=== PATIENT | female | born 1985 | race African-American/Black ===

== ENCOUNTER 2016-08-26 20:12 | Emergency (ER) | payer MEDICAID ==
[~2016-08-26] VITALS: Ht 170.2 cm; Wt 51.3 kg
[~2016-08-26 20:12] MED LIST: BENADRYL25 MG ORAL; CIPROFLOXACIN500 M2 ORAL; IBUPROFEN600 M1 PO; KEFLEX500 MG ORAL; METROGEL-VAGINA70 G1 VAGIN; METROGEL-VAGINA70 G1 VG; NAPROXEN500 M2 ORAL; NKM; NORCO 5-325 TA1 EACH ORAL; PENICILLIN V P500 MG PO; SILVADENE CREAM50 GM TOP; TRAMADOL HCL50 MG ORAL; TYLENOL EXTRA500 MG ORAL; ULTRAM50 MG ORAL
[2016-08-26 20:42] VITALS: BP 124/77
[2016-08-26] MEDS ORDERED: Norco 5mg/325mg tab ORAL ONE (21:15)
[2016-08-26 21:18] LABS: APPEARANCE,URINE CLEAR; KETONES,URINE NEGATIVE (NEGATIVE); LEUKOCYTE ESTERASE ,URINE 1+ (NEGATIVE); NITRITE,URINE NEGATIVE (NEGATIVE); PH,URINE 7 (4.5-8.0); PROTEIN,URINE NEGATIVE (NEGATIVE); UROBILINOGEN,URINE 1 MG/DL (0.0-1.0)
[2016-08-26 21:28] LABS: BACTERIA,URINE FEW /HPF; SQUAMOUS EPITHELIAL CELL,UR MODERATE /LPF (NONE/OCC); WBC,URINE 0-2 /HPF (0 - 2)
--- NOTE | 2016-08-26 21:30 | Emergency Room Report ---
History of Present Illness General Chief Complaint: Abdominal Pain Source: Patient Present Illness HPI Is a 30-year-old female with a history of right ovarian cyst. Last time he was 4 cm. She was been treated conservatively with control pill. She did not continue control because they gave her headache and nausea. She present with right lower quadrant pain this started yesterday. Sharp in nature. Worse with movement and palpation. No anorexia. No fever. No chills. Similar to previous pain. No other complaint. Allergies: Coded Allergies: IBUPROFEN (Verified Allergy, Mild, vomiting, 05/07/13) Patient History Past Medical History: see triage record, old chart reviewed Past Surgical History: other Pertinent Family History: none Social History: Denies: smoking Last Menstrual Period: 08/14/16 Now: No Immunizations: other Reviewed Nursing Documentation: PMH: Agreed, PSxH: Agreed Nursing Documentation-PMH Hx Cardiac Problems: No Hx Gastrointestinal Problems: Yes - OVARIAN CYST Hx Neurological Problems: No Review of Systems Eye: Denies: blurred vision, eye pain ENT: Denies: ear pain, nose congestion, throat swelling Respiratory: Denies: cough, shortness of breath Cardiovascular: Denies: chest pain, palpitations Gastrointestinal: Reports: abdominal pain, Denies: diarrhea, nausea, vomiting Musculoskeletal: Denies: back pain, joint pain Skin: Denies: rash Neurological: Denies: headache, numbness Endocrine: Denies: increased thirst, increased urine Hematologic/Lymphatic: Denies: easy bruising All Other Systems: negative except mentioned in HPI Physical Exam Vital Signs Date Time Temp Pulse Resp B/P Pulse Ox O2 Delivery O2 Flow Rate FiO2 08/26/16 20:32 98.4 83 15 124/77 99 Room Air vitals normal Sp02 EP Interpretation: reviewed, normal General Appearance: well appearing, no apparent distress, alert Head: normocephalic, atraumatic Eyes: bilateral eye EOMI, bilateral eye PERRL ENT: hearing grossly normal, normal pharynx Neck: full range of motion, supple, no meningismus Respiratory: chest non-tender, lungs clear, normal breath sounds Cardiovascular #1: regular rate, rhythm, no murmur Gastrointestinal: normal bowel sounds, no mass, no organomegaly, no bruit, non- distended, tenderness - Right lower quadrant Musculoskeletal: back normal, gait/station normal, normal range of motion Psychiatric: mood/affect normal Skin: warm/dry Medical Decision Making Diagnostic Impression: Primary Impression: Ovarian cyst Qualified Codes: N83.201 - Unspecified ovarian cyst, right side ER Course Patient presents with right lower quadrant pain. No evidence of infection. No evidence of appendicitis or acute abdomen. She does have a history of ovarian cysts which is smaller. No evidence of any torsion. She looks comfortable. We 'll discharge home. Her allergies to ibuprofen is out of, stomach upset and she vomits. No true allergy. CT/MRI/US Diagnostic Results CT/MRI/US Diagnostic Results : Imaging Test Ordered: CT abdomen and pelvis Impression read by radiologist. Ovarian cyst smaller. No appendicitis. Last Vital Signs Date Time Temp Pulse Resp B/P Pulse Ox O2 Delivery O2 Flow Rate FiO2 08/26/16 20:32 98.4 83 15 124/77 99 Room Air Status: improved Disposition: HOME, SELF-CARE Condition: Stable Scripts Hydrocodone Bit/Acetaminophen 5-325* (NORCO 5-325*) 1 Each Tablet 1 TAB ORAL Q6H Y for For Pain, #10 TAB 0 Refills Prov: CHAS ROYAL M.D. 08/26/16 Additional Instructions: Followup with your DrColby in 7 days. Return if symptom worsen. CHAS ROYAL M.D. Aug 26, 2016 21:30
[2016-08-26] MEDS ORDERED: NORCO 5-325 TA1 EACH ORAL (22:21)
[2016-08-26 23:08] VITALS: BP 117/69
--- NOTE | 2016-08-28 09:12 | Diagnostic Imaging Report ---
Indication: Abdominal pain and pelvic pain Technique: Spiral acquisitions obtained through the abdomen and pelvis. No oral contrast utilized, per emergency room physician request No IV contrast utilized, per referring physician request.. Multiplanar reconstructions were generated. Total dose length product 517 mGycm. CTDIvol(s) mGy Comparison: June 02, 2014 Findings: Lack of enteric contrast limits assessment of the GI tract. The appendix is normal. Is no evidence of diverticulosis or diverticulitis. There is trace free pelvic fluid. No small bowel distention. No free intraperitoneal air. The esophagus, stomach, duodenum are unremarkable. Lack of IV contrast limits assessment of solid organs. The liver is unremarkable. The gallbladder is nondistended. The pancreas, spleen, adrenals, kidneys are unremarkable. No mesenteric or retroperitoneal mass or adenopathy. No pelvic mass or adenopathy. Previously demonstrated right adnexal cyst is no longer present. The included lung bases are clear. The bones are unremarkable. Impression: Essentially unremarkable exam. Trace free pelvic fluid, most likely physiologic Since June 02, 2014, interim resolution of previously demonstrated adnexal cyst This agrees with the preliminary interpretation provided overnight by Dr. Salgado The CT scanner at [facility] is accredited by the [employer] and the scans are performed using protocols designed to limit radiation exposure to as low as reasonably achievable to attain images of sufficient resolution adequate for diagnostic evaluation.
== END 2016-08-26 23:10 | disposition home or self-care (01) ==
LOC: EMR 21:43
DX: N83.201 Unspecified ovarian cyst, right side (principal); Z88.6 Allergy status to analgesic agent
CPT/HCPCS: 74176; 81003; 81025; 99284

== ENCOUNTER 2016-09-13 20:37 | Emergency (ER) | payer MEDICAID, OTHER ==
[~2016-09-13] VITALS: Ht 170.2 cm; Wt 53.5 kg
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
[2016-09-13 21:00] VITALS: BP 130/75
[2016-09-13] MEDS ORDERED: Naproxen 500mg tab ORAL ONE (21:00)
[2016-09-13] MEDS ORDERED: NAPROXEN375 MG ORAL (21:03)
[2016-09-13] MEDS ORDERED: NORCO 5-325 TA1 EACH ORAL (21:03)
[2016-09-14] MEDS ORDERED: PERCOCET 5-3251 EACH ORAL (23:28)
== END 2016-09-13 21:30 | disposition home or self-care (01) ==
LOC: EMR 21:00
DX: S09.90XA Unspecified injury of head, initial encounter (principal); Z88.6 Allergy status to analgesic agent; Y00.XXXA Assault by blunt object, initial encounter; Y92.512 Supermarket, store or market as the place of occurrence of the external cause; Y99.0 Civilian activity done for income or pay
CPT/HCPCS: 99284

== ENCOUNTER 2016-09-14 21:22 | Emergency (ER) | payer OTHER ==
[~2016-09-14] VITALS: Ht 170.2 cm; Wt 51.3 kg
[~2016-09-14 21:22] MED LIST changes: +NAPROXEN375 MG ORAL
[2016-09-14 21:30] VITALS: BP 124/78
[2016-09-14] MEDS ORDERED: Oxycodone/Acetaminophen 5-325 ORAL ONE (21:45)
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
[2016-09-14] MEDS ORDERED: PERCOCET 5-3251 EACH ORAL (23:28)
[2016-09-15] VITALS: BP 122/71
[2016-09-15 00:06] VITALS: BP 124/78
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
== END 2016-09-15 | disposition home or self-care (01) ==
LOC: EMR 21:59
DX: G44.319 Acute post-traumatic headache, not intractable (principal); Z88.6 Allergy status to analgesic agent
CPT/HCPCS: 70450; 99284

== ENCOUNTER 2017-02-19 23:03 | Emergency (ER) | payer OTHER ==
[~2017-02-19] VITALS: Ht 170.2 cm; Wt 63.5 kg
[~2017-02-19 23:03] MED LIST changes: +PERCOCET 5-3251 EACH ORAL
[2017-02-19 23:45] VITALS: BP 122/76
[2017-02-19] MEDS ORDERED: Ketorolac 30mg Inj IV ONE (23:45)
--- NOTE | 2017-02-19 23:46 | Emergency Room Report ---
History of Present Illness General Chief Complaint: Abdominal Pain Source: Patient Present Illness HPI Is a 31-year-old female with history of brain cyst. She complaining of right lower caught her abdominal pain onset for 2 days. Similar to previous ovarian cyst. She said it measured 4-5 cm before. Pain is sharp in nature. 01/08. No nausea or vomiting or diarrhea. No fever. No urinary complaint. Allergies: Coded Allergies: IBUPROFEN (Verified Allergy, Mild, vomiting, 05/07/13) Patient History Past Medical History: see triage record, old chart reviewed Past Surgical History: other Pertinent Family History: none Social History: Denies: smoking Last Menstrual Period: last month Now: No Immunizations: other Reviewed Nursing Documentation: PMH: Agreed, PSxH: Agreed Nursing Documentation-PMH Hx Cardiac Problems: No Hx Gastrointestinal Problems: Yes - OVARIAN CYST Hx Neurological Problems: No Review of Systems Eye: Denies: eye pain, blurred vision ENT: Denies: ear pain, nose congestion, throat swelling Respiratory: Denies: cough, shortness of breath Cardiovascular: Denies: chest pain, palpitations Gastrointestinal: Reports: abdominal pain, Denies: diarrhea, nausea, vomiting Musculoskeletal: Denies: back pain, joint pain Skin: Denies: rash Neurological: Denies: headache, numbness Endocrine: Denies: increased thirst, increased urine Hematologic/Lymphatic: Denies: easy bruising All Other Systems: negative except mentioned in HPI Physical Exam Vital Signs Date Time Temp Pulse Resp B/P (MAP) Pulse Ox O2 Delivery O2 Flow Rate FiO2 02/19/17 23:14 98.4 82 16 120/85 99 Room Air vitals normal Sp02 EP Interpretation: reviewed, normal General Appearance: well appearing, no apparent distress, alert Head: normocephalic, atraumatic Eyes: bilateral eye PERRL, bilateral eye EOMI ENT: hearing grossly normal, normal pharynx Neck: full range of motion, supple, no meningismus Respiratory: chest non-tender, lungs clear, normal breath sounds Cardiovascular #1: regular rate, rhythm, no murmur Gastrointestinal: normal bowel sounds, no mass, no organomegaly, no bruit, non- distended, tenderness - Right lower quadrant/right pelvic tenderness Musculoskeletal: back normal, gait/station normal, normal range of motion Neurologic: alert, oriented x3 Psychiatric: mood/affect normal Skin: warm/dry Medical Decision Making Diagnostic Impression: Primary Impression: Abdominal pain of unknown etiology Additional Impression: Pelvic pain ER Course She present with abdominal pain/pelvic pain. She looks comfortable. No evidence of cysts on the ultrasound. No evidence of torsion. No evidence of urinary tract infection. We'll discharge home. Lab Results Impression labs normal CT/MRI/US Diagnostic Results CT/MRI/US Diagnostic Results : Imaging Test Ordered: Pelvic ultrasound Impression negative per radiologist. no cyst Last Vital Signs Date Time Temp Pulse Resp B/P (MAP) Pulse Ox O2 Delivery O2 Flow Rate FiO2 02/19/17 23:21 98.4 82 16 120/85 99 Room Air Status: improved Disposition: HOME, SELF-CARE Condition: Stable Scripts Tramadol Hcl* (ULTRAM*) 50 Mg Tablet 50 MG ORAL Q6H Y for For Pain, #10 TAB 0 Refills Prov: CHAS ROYAL M.D. 02/20/17 Referrals: [facility],REFERRING (PCP) Patient Instructions: Abdominal Pain, Adult Additional Instructions: Followup with your DrColby in 7 days. Return if symptom worsen. CHAS ROYAL M.D. Feb 19, 2017 23:46
[2017-02-19 23:59] LABS: APPEARANCE,URINE CLEAR; KETONES,URINE NEGATIVE (NEGATIVE); LEUKOCYTE ESTERASE ,URINE NEGATIVE (NEGATIVE); NITRITE,URINE NEGATIVE (NEGATIVE); PH,URINE 5 (4.5-8.0); PROTEIN,URINE NEGATIVE (NEGATIVE); UROBILINOGEN,URINE NORMAL MG/DL (0.0-1.0)
[2017-02-20 00:06] LABS: BASOPHILS % (AUTO) 1.2 % (0.0-2.0); EOSINOPHILS % (AUTO) 4.5 % (0.0-3.0); LYMPHOCYTES % (AUTO) 40.8 % (20.0-45.0); MEAN CORPUSCULAR HEMOGLOBIN 30.7 PG (27.0-31.0); MEAN CORPUSCULAR HGB CONC 33.6 G/DL (32.0-36.0); MEAN CORPUSCULAR VOLUME 91 FL (80-99); MEAN PLATELET VOLUME 9.1 FL (6.5-10.1); MONOCYTES % (AUTO) 5.3 % (1.0-10.0); NEUTROPHILS % (AUTO) 48.2 % (45.0-75.0); PLATELET COUNT 186 K/UL (150-450); RED BLOOD COUNT 4.28 M/UL (4.20-5.40); RED CELL DISTRIBUTION WIDTH 11.2 % (11.6-14.8); WHITE BLOOD COUNT 7.4 K/UL (4.8-10.8)
[2017-02-20 00:23] LABS: ANION GAP 10 (5-15); CALCIUM 9.4 mg/dL (8.6-10.2); CARBON DIOXIDE 29 mEQ/L (20-30); CHLORIDE 100 mEQ/L (98-107); CREATININE 1.2 mg/dL (0.5-0.9); GLOMERULAR FILTRATION RATE > 60 mL/min (>60); HEMOLYSIS 6; POTASSIUM 3.8 mEQ/L (3.4-4.9); SODIUM 139 mEQ/L (135-145)
[2017-02-20 01:00] VITALS: BP 118/72
[2017-02-20] MEDS ORDERED: TRAMADOL HCL50 MG ORAL (01:45)
[2017-02-20 01:50] VITALS: BP 128/74
[2017-02-20 02:00] VITALS: BP 128/74
== END 2017-02-20 02:00 | disposition home or self-care (01) ==
LOC: EMR 23:40
DX: R10.9 Unspecified abdominal pain (principal); R10.2 Pelvic and perineal pain; Z88.6 Allergy status to analgesic agent
CPT/HCPCS: 36415; 76830; 76856; 80048; 81003; 81025; 85025; 96374; 99284; J1885

== ENCOUNTER 2017-07-29 19:45 | Emergency (ER) | payer OTHER ==
[~2017-07-29] VITALS: Ht 170.2 cm; Wt 65.8 kg
[2017-07-29] MEDS ORDERED: Norco 5mg/325mg tab ORAL ONE (20:00)
--- NOTE | 2017-07-29 20:40 | Emergency Room Report ---
History of Present Illness General Chief Complaint: Lower Extremity Injury Source: Patient Present Illness HPI 31 YO Female presents to the ED c/o Right great toe pain that is localized and rated as 8/10 in severity x 1 week, stubbed toe in grocery store a week ago . pain exacerbated with weight bearing and walking. denies bruises, erythema, or open wounds. reports mild swelling. Denies numbness tingling or loss of sensation or gross motor movements of the extremities, incontinence of bowel or bladder. Denies CP, Palpitations, LOC, AMS, dizziness, Changes in Vision, Sensation, paresthesias, or a sudden severe headache. Allergies: Coded Allergies: IBUPROFEN (Verified Allergy, Mild, vomiting, 05/07/13) Patient History Past Medical History: see triage record Past Surgical History: none Pertinent Family History: none Last Menstrual Period: unknown Now: No : 1 Immunizations: UTD Reviewed Nursing Documentation: PMH: Agreed, PSxH: Agreed Nursing Documentation-PMH Hx Cardiac Problems: No Hx Neurological Problems: No Review of Systems All Other Systems: negative except mentioned in HPI Physical Exam Vital Signs Date Time Temp Pulse Resp B/P (MAP) Pulse Ox O2 Delivery O2 Flow Rate FiO2 07/29/17 20:05 98.7 79 18 120/77 99 Room Air 98.8 Sp02 EP Interpretation: reviewed, normal General Appearance: no apparent distress, alert, GCS 15, non-toxic Head: normocephalic, atraumatic ENT: hearing grossly normal, normal voice Neck: full range of motion Respiratory: lungs clear, normal breath sounds, speaking full sentences Cardiovascular #1: regular rate, rhythm, no edema, normal capillary refill Musculoskeletal: back normal, gait/station normal, normal range of motion, tender - TTP to the base of the Right Great toe, pain upon checking for laxity. no increased laxity, no bruises or appreciable swelling. Neurologic: alert, oriented x3, responsive, motor strength/tone normal, sensory intact, speech normal, grossly normal Psychiatric: judgement/insight normal Skin: normal color, no rash, warm/dry, well hydrated, other - no bruising or erythema, no open wounds Medical Decision Making PA Attestation Dr. snow is my supervising Physician whom patient management has been discussed with. Diagnostic Impression: Primary Impression: Sprain of toe, great, right Qualified Codes: S93.501A - Unspecified sprain of right great toe, initial encounter ER Course 31 YO Female presents to the ED c/o Right great toe pain that is localized and rated as 8/10 in severity x 1 week, stubbed toe in grocery store a week ago . pain exacerbated with weight bearing and walking. denies bruises, erythema, or open wounds. reports mild swelling. Denies numbness tingling or loss of sensation or gross motor movements of the extremities, incontinence of bowel or bladder. Denies CP, Palpitations, LOC, AMS, dizziness, Changes in Vision, Sensation, paresthesias, or a sudden severe headache. Ddx considered but are not limited to Fracture, dislocation, contusion, Sprain/ Strain/Spasm , gout, Septic joint just to name a few. Vital signs: are WNL, pt. is afebrile H&PE are most consistent with musculoskeletal injury will perform imaging to r/ o fractures/dislocations. ORDERS: - X-ray Right Foot 3 views - negative for fx, Dislocation, or significant soft tissue injury, per preliminary read in ED, and signed by MISHEL Brandon , my supervising physician has reviewed, and agrees with my interpretation. ED INTERVENTIONS: - Oral pain control. - Cast shoe applied by cleaning supervisor - -Patient is provided with crutches and instructed on their use DISCHARGE: At this time pt. is stable for d/c to home. Will provide printed patient care instructions, and any necessary prescriptions. Care plan and follow up instructions have been discussed with the patient prior to discharge. Other X-Ray Diagnostic Results Other X-Ray Diagnostic Results : X-Ray ordered: Right Foot # of Views/Limited Vs Complete: 3 View Indication: Pain EP Interpretation: Yes MISHEL Xray: Interpretation reviewed, by supervising MD, and agrees with findings. Interpretation: no dislocation, no soft tissue swelling, no fractures Impression: No acute disease Electronically Signed by: Yael Brandon PA-C Last Vital Signs Date Time Temp Pulse Resp B/P (MAP) Pulse Ox O2 Delivery O2 Flow Rate FiO2 07/29/17 20:27 98.7 07/29/17 20:05 79 18 120/77 99 Room Air Disposition: HOME, SELF-CARE Condition: Stable Scripts Naproxen* (NAPROXEN*) 500 Mg Tablet 500 MG ORAL TWICE A DAY, #20 TAB Prov: Yael Brandon 07/29/17 Patient Instructions: Foot Sprain Additional Instructions: Take medications as directed. Follow up with a Primary Care Provider in 3-5 days, even if your symptoms have resolved. --Please review list of primary care clinics, if you do not already have a primary care provider Return sooner to ED if new symptoms occur, or current symptoms become worse. - Please note that this Emergency Department Report was dictated using [employer][email or web address] equipment commanding officer technology software, occasionally this can lead to erroneous entry secondary to interpretation by the dictation equipment. Yael Brandon Jul 29, 2017 20:40
[2017-07-29] MEDS ORDERED: NAPROXEN500 M2 ORAL (20:41)
[2017-07-29 21:15] VITALS: BP 120/77
--- NOTE | 2017-07-30 09:45 | Diagnostic Imaging Report ---
Indication: Pain, first digit trauma Technique: 3 views right foot Comparison: none Findings: No acute fractures. No dislocations. The joint spaces are preserved. Bony alignment is normal. Impression: Negative
== END 2017-07-29 21:15 | disposition home or self-care (01) ==
LOC: EMR 20:43
DX: S93.501A Unspecified sprain of right great toe, initial encounter (principal); W22.8XXA Striking against or struck by other objects, initial encounter; Y92.512 Supermarket, store or market as the place of occurrence of the external cause; Z88.6 Allergy status to analgesic agent
CPT/HCPCS: 99283

== ENCOUNTER 2017-08-20 22:16 | Emergency (ER) | payer OTHER ==
[~2017-08-20] VITALS: Ht 170.2 cm; Wt 67.1 kg
[2017-08-20 22:20] VITALS: BP 129/78
--- NOTE | 2017-08-20 22:39 | Emergency Room Report ---
History of Present Illness General Chief Complaint: Abdominal Pain Source: Patient Present Illness HPI 31-year-old female presents with 2-3 days intermittent vaginal spotting Patient and partner noticed it 3 days ago after intercourse however but she denies that it was rougher intercourse than usual patient was "not feelin and went to the bathroom and noticed spotting on tissue paper tonight so came to ER No tracie vaginal hemorrhage Patient's LMP was 2 weeks ago Never had off cycle vaginal bleeding previously Patient denies associated dysuria, polyuria, fever chills, flank pain, vaginal discharge Patient TOOK [place] 30 minutes before coming refusing any pain medication right now Allergies: Coded Allergies: IBUPROFEN (Verified Allergy, Mild, vomiting, 08/20/17) Patient History Past Medical History: none Past Surgical History: none Pertinent Family History: none Social History: Denies: smoking, alcohol use, drug use Last Menstrual Period: 2 weeks ago Now: No Immunizations: UTD Reviewed Nursing Documentation: PMH: Agreed; PSxH: Agreed Nursing Documentation-PMH Past Medical History: No History, Except For Hx Cardiac Problems: No Hx Neurological Problems: No Review of Systems All Other Systems: negative except mentioned in HPI Physical Exam Vital Signs Date Time Temp Pulse Resp B/P (MAP) Pulse Ox O2 Delivery O2 Flow Rate FiO2 08/20/17 22:17 98.0 86 16 129/78 100 Room Air 98.1 Sp02 EP Interpretation: reviewed, normal General Appearance: normal inspection, well appearing, no apparent distress, alert, GCS 15, non-toxic Head: normocephalic, atraumatic Eyes: bilateral eye PERRL, bilateral eye EOMI ENT: normal ENT inspection, hearing grossly normal, normal pharynx, no angioedema, normal voice, TMs + canals normal, uvula midline, moist mucus membranes Neck: normal inspection, full range of motion, supple, thyroid normal, no meningismus, no bony tend Respiratory: normal inspection, lungs clear, normal breath sounds, no rhonchi, no respiratory distress, no retraction, no accessory muscle use, no wheezing, speaking full sentences Cardiovascular #1: regular rate, rhythm, no edema, no JVD, normal capillary refill Gastrointestinal: normal inspection, normal bowel sounds, soft, no mass, no peritonitis, non-distended, no guarding, no hernia, no pulsatile mass, other - Very minimal suprapubic tenderness to palpation Genitourinary: no CVA tenderness Musculoskeletal: normal inspection, back normal, normal range of motion, no calf tenderness, pelvis stable, Claudia's Sign negative Neurologic: normal inspection, alert, oriented x3, responsive, school counsellor III-XII nml as tested, motor strength/tone normal, cerebellar normal, normal gait, speech normal Psychiatric: normal inspection, judgement/insight normal, mood/affect normal, no suicidal/homicidal ideation, no delusions Skin: normal inspection, normal color, no rash Lymphatic: normal inspection, no adenopathy Medical Decision Making Diagnostic Impression: Primary Impression: Vaginal bleeding ER Course VSS, afebrile No tracie hemorrhage ?menorrhagia Unlikely ovarian cyst rupture given well appearance, stable vitals, and patient had this previously uaShows microscopic hematuria, no tracie UTI Reassured patient Advised she can take her naproxen she has at home for cramping and mild spotting but should follow up with legal advisor for further evaluation, treatment Last Vital Signs Date Time Temp Pulse Resp B/P (MAP) Pulse Ox O2 Delivery O2 Flow Rate FiO2 08/20/17 22:17 98.0 86 16 129/78 100 Room Air 98.1 Status: improved Disposition: HOME, SELF-CARE DUY FLORES M.D. Aug 20, 2017 22:39
[2017-08-20 22:51] LABS: APPEARANCE,URINE CLEAR; BILIRUBIN, URINE NEGATIVE (NEGATIVE); COLOR,URINE PALE YELLOW; GLUCOSE, URINE (UA) NEGATIVE (NEGATIVE); KETONES,URINE NEGATIVE (NEGATIVE); LEUKOCYTE ESTERASE ,URINE NEGATIVE (NEGATIVE); NITRITE,URINE NEGATIVE (NEGATIVE); PH,URINE 6 (4.5-8.0); PROTEIN,URINE NEGATIVE (NEGATIVE); UROBILINOGEN,URINE NORMAL MG/DL (0.0-1.0)
[2017-08-20 23:17] VITALS: BP 129/78
== END 2017-08-20 23:16 | disposition home or self-care (01) ==
LOC: EMR 22:35
DX: N93.9 Abnormal uterine and vaginal bleeding, unspecified (principal); R10.9 Unspecified abdominal pain; Z88.6 Allergy status to analgesic agent
CPT/HCPCS: 81003; 81025; 99282

== ENCOUNTER 2018-05-12 19:25 | Emergency (ER) | payer OTHER ==
[~2018-05-12] VITALS: Ht 170.2 cm; Wt 61.7 kg
[2018-05-12] MEDS ORDERED: LEXAPRO5 MG ORAL (19:35)
[2018-05-12 19:41] VITALS: BP 118/69
--- NOTE | 2018-05-12 19:59 | Emergency Room Report ---
History of Present Illness General Chief Complaint: Upper Extremity Injury Source: Patient Present Illness HPI 32-year-old female patient presents the ER complaining of right index finger infection for the past days. Patient reports pain and swelling on the radial border of her left fingernail. 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 Patient reports that it was more swollen before she applied ice to the affected area but is still swollen and painful.. Reports no pus has drained. Denies injury or trauma. Denies fever, chest pain , shortness of breath. Reports right hand dominant. Reports up-to-date on tetanus vaccination. Allergies: Coded Allergies: IBUPROFEN (Verified Allergy, Mild, vomiting, 08/20/17) Patient History Past Medical History: see triage record Last Menstrual Period: UNK Now: No - UNK : 1 Para: 1 Reviewed Nursing Documentation: PMH: Agreed; PSxH: Agreed Nursing Documentation-PMH Past Medical History: No History, Except For Hx Cardiac Problems: No Hx Neurological Problems: No Review of Systems All Other Systems: negative except mentioned in HPI Physical Exam Vital Signs Date Time Temp Pulse Resp B/P (MAP) Pulse Ox O2 Delivery O2 Flow Rate FiO2 05/12/18 19:32 98.2 73 16 120/77 100 Room Air Sp02 EP Interpretation: reviewed, normal General Appearance: well appearing, no apparent distress, alert, GCS 15, non- toxic Head: normocephalic, atraumatic Eyes: bilateral eye normal inspection, bilateral eye PERRL ENT: hearing grossly normal, normal pharynx, no angioedema, normal voice, uvula midline, moist mucus membranes Neck: full range of motion Respiratory: lungs clear, normal breath sounds, no rhonchi, no respiratory distress, no accessory muscle use, no wheezing, speaking full sentences Cardiovascular #1: regular rate, rhythm, no edema Cardiovascular #2: 2+ radial (R), 2+ radial (L) Musculoskeletal: back normal, digits/nails normal, gait/station normal, normal range of motion, non-tender, other - NVI, cap refill <2seconds Neurologic: alert, oriented x3, responsive, motor strength/tone normal, sensory intact Skin: other - Right hand index finger radial border: Obvious small paronychia, mild erythema and swelling, indurated, no felon, no nail avulsion Procedures Incision and Drainage Incision and Drainage : Consent: Verbal Site: Right index finger Blade Size: 11 I & D Procedure: betadine prep, sterile drapes applied, sterile dressing applied Wound Location: upper extremity - Right index finger Wound's Depth, Shape: superficial Wound Length (cm): 1 Wound Explored: contaminated Irrigated w/ Saline (ccs): 10 Anesthesia: other - LET Volume Anesthetic (ccs): 1 Splint Applied?: No Sling Applied?: No Patient Tolerated: Well Complications: None Medical Decision Making PA Attestation Dr. Bond is my supervising Physician whom patient management has been discussed with. Diagnostic Impression: Primary Impression: Paronychia of finger ER Course Pt. presents to the ED c/o abscess on finger. Ddx considered but are not limited to rash, cellulitis, abscess, felon, paronychia, hangnail, herpetic aby. Vital signs: are WNL, pt. is afebrile Ordered Bacitracin and Lidocaine ED COURSE: Topical LET is for local anesthesia. I&D performed of paronychia. Pus expressed from finger. See procedure note. Patient finger no longer swollen, patient reports decrease in pain symptoms. Sterile dressing and Bacitracin applied to wound following procedure. Patient instructed to keep wound clean and dry and to follow-up with primary care provider in 2 days for wound check. ER precautions given. DISCHARGE -Rx provided for Clindamycin to cover for MRSA. -Rx provided for Tylenol -Rx provided for Bacitracin At this time pt. is stable for d/c to home. Patient resting comfortably, in no acute distress, nontoxic appearing, laughing and smiling. Will provide printed patient care instructions and any necessary prescriptions. Care plan and follow up instructions have been discussed with the patient prior to discharge. Patient instructed to follow-up with primary care provider in 2 - 3 days for wound recheck. Patient questions asked and answered. Patient reports understanding and agreement to treatment plan. ER precautions given. Patient instructed to return to ER immediately for any new or worsening of symptoms including but not limited to fever, worsening of pain symptoms, worsening of erythema, red streaking. - Please note that this Emergency Department Report was dictated using [employer] consultant technology software, occasionally this can lead to erroneous entry secondary to interpretation by the dictation equipment. Last Vital Signs Date Time Temp Pulse Resp B/P (MAP) Pulse Ox O2 Delivery O2 Flow Rate FiO2 05/12/18 19:41 98.0 68 16 118/69 100 Room Air Status: improved Disposition: HOME, SELF-CARE Condition: Stable Scripts Bacitracin/Polymyxin B Sulfate (BACITRACIN-POLYMYXIN OINTMENT) 28.35 Gm Oint...g. 1 APPLIC TP BID, #28 GM Prov: Moody Jarvis 05/12/18 Acetaminophen* (TYLENOL EXTRA STRENGTH*) 500 Mg Tablet 500 MG ORAL Q8H PRN for Prn Headache/Temp > 101, #30 TAB 0 Refills Prov: Moody Jarvis 05/12/18 Clindamycin HCl (Clindamycin HCl) 300 Mg Capsule 300 MG ORAL EVERY 6 HOURS for 7 Days, #28 CAP Prov: Moody Jarvis 05/12/18 Patient Instructions: Paronychia, [id number] Additional Instructions: Followup with primary care provider or return to ER in 2-3 days for wound check. Keep clean and dry. Do not soak in water. Allow to drain. Take medications as directed. Patient questions asked and answered. ER precautions given, patient instructed to return to ER immediately for any new or worsening of symptoms. Moody Jarvis May 12, 2018 19:59
[2018-05-12] MEDS ORDERED: Bacitracin Oint UD TOPIC ONE (20:00)
[2018-05-12] MEDS ORDERED: LET 3ml Soln TOPIC ONE (20:00)
[2018-05-12] MEDS ORDERED: Tetanus/Diptheria/Pertussis Vaccine 0.5ml Syr IM ONE (20:00)
[2018-05-12 20:20] VITALS: BP 128/78
[2018-05-12] MEDS ORDERED: CLEOCIN150 MG ORAL (20:23)
[2018-05-12] MEDS ORDERED: TYLENOL EXTRA500 MG ORAL (20:23)
[2018-05-12 20:25] VITALS: BP 128/78
[2018-05-12] MEDS ORDERED: BACITRACIN-P28.35 GM TP (20:33)
== END 2018-05-12 22:45 | disposition home or self-care (01) ==
LOC: EMR 20:17
DX: L03.011 Cellulitis of right finger (principal); Z88.6 Allergy status to analgesic agent
CPT/HCPCS: 10060; 99283; Z7502; 90471; 90715

== ENCOUNTER 2019-12-04 15:18 | Emergency (ER) | payer OTHER ==
[~2019-12-04] VITALS: Ht 170.2 cm; Wt 68.9 kg
[~2019-12-04 15:18] MED LIST changes: +BACITRACIN-P28.35 GM TP; +CLEOCIN150 MG ORAL; +LEXAPRO5 MG ORAL
--- NOTE | 2019-12-04 15:36 | Emergency Room Report ---
History of Present Illness General Chief Complaint: Pain Source: Patient Present Illness HPI 34-year-old female with no significant past medical history here complaining of minimal pain in the right index finger. Patient works that she clipped her nail earlier today assessing pus coming out. No paronychia noted. Rates the pain 3/10 without radiation. Already taking naproxen and reports relief. Denies any fever and chills, cough and congestion, shortness of breath. 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 Denies any fall or injury. Denies . Allergies: Coded Allergies: IBUPROFEN (Verified Allergy, Mild, vomiting, 08/20/17) COVID-19 Screening Contact w/high risk pt: No Recent Travel to affected area: No Experienced COVID-19 symptoms?: No COVID-19 Testing performed LOGISTICIAN: No Patient History Past Medical History: see triage record Past Surgical History: none Pertinent Family History: none Last Menstrual Period: currently on her period Now: No Immunizations: UTD Reviewed Nursing Documentation: PMH: Agreed; PSxH: Agreed Nursing Documentation-PMH Past Medical History: No History, Except For Hx Cardiac Problems: No Hx Neurological Problems: No Review of Systems All Other Systems: negative except mentioned in HPI Physical Exam Vital Signs Date Time Temp Pulse Resp B/P (MAP) Pulse Ox O2 Delivery O2 Flow Rate FiO2 12/04/19 15:25 98.8 75 16 117/79 (92) 98 Room Air Sp02 EP Interpretation: reviewed, normal General Appearance: well appearing, no apparent distress Head: normocephalic, atraumatic ENT: hearing grossly normal, normal voice Neck: full range of motion, supple Respiratory: lungs clear, no rhonchi, no respiratory distress, no retraction, no wheezing Cardiovascular #1: no murmur Cardiovascular #2: 2+ radial (R), 2+ radial (L) Gastrointestinal: non tender, soft Rectal: deferred Genitourinary: no CVA tenderness Musculoskeletal: gait/station normal, no calf tenderness Neurologic: alert, normal gait Psychiatric: mood/affect normal Skin: no rash, other - No paronychia noted, I did not personally visualize any pus drainage or infection underneath the nail however patient was very concerned about infection Lymphatic: no adenopathy Medical Decision Making PA Attestation All diagnoses and treatment plans were reviewed and discussed with my supervising physician Dr. Kamara Diagnostic Impression: Primary Impression: Finger infection ER Course 34-year-old female with no significant past medical history here complaining of minimal pain in the right index finger. Patient works that she clipped her nail earlier today assessing pus coming out. No paronychia noted. Rates the pain 3/10 without radiation. Already taking naproxen and reports relief. Denies any fever and chills, cough and congestion, shortness of breath. 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 Denies any fall or injury. Denies . Ddx considered but are not limited to : Cellulitis, paronychia, superficial infection, abscess Vital signs: are WNL, pt. is afebrile H&PE are most consistent with: Finger infection ORDERS: Keflex ED INTERVENTIONS: None required at this time. DISCHARGE: At this time pt. is stable for d/c to home. Will provide printed patient care instructions, and any necessary prescriptions. Care plan and follow up instructions have been discussed with the patient prior to discharge. Patient take medication follow primary care provider, versus any return to emergency room. Also patient asked for an entire week off as she would like to her unemployment benefits I advised her the patient is to follow-up with primary doctor and accompanied by her for a note off to 3 days. Last Vital Signs Date Time Temp Pulse Resp B/P (MAP) Pulse Ox O2 Delivery O2 Flow Rate FiO2 12/04/19 15:25 98.8 75 16 117/79 (92) 98 Room Air Disposition: HOME, SELF-CARE Condition: Stable Scripts Cephalexin* (KEFLEX*) 500 Mg Capsule 500 MG ORAL EVERY 8 HOURS for 7 Days, #21 CAP 0 Refills Prov: Nivia Rivas 12/04/19 Patient Instructions: Fingertip Infection Additional Instructions: Take medication as directed, follow-up with your primary care provider, if worsening symptom return to the emergency room Nivia Rivas Dec 04, 2019 15:36
[2019-12-04 15:37] VITALS: BP 117/79
--- NOTE | 2019-12-04 15:38 | NUR ---
ED Nurse Note: Patient from home walked in due to right index finger pain since 2 days ago. 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 Patient walked AAO x4, VSS at this time.
[2019-12-04] MEDS ORDERED: CEPHALEXIN500 MG ORAL (15:39)
[2019-12-04 15:43] VITALS: BP 117/79
--- NOTE | 2019-12-04 15:43 | NUR ---
ED Nurse Note: Pt cleared by health care Provider for discharge. DC instructions/prescription was given and explained to pt and verbalized understanding of teachings. All medical deviecs such as ID band removed. Pt is AAO x4, ambulatory and left with all personal belongings.
== END 2019-12-04 16:00 | disposition home or self-care (01) ==
LOC: EMR 15:46
DX: L08.9 Local infection of the skin and subcutaneous tissue, unspecified (principal); Z88.6 Allergy status to analgesic agent
CPT/HCPCS: 99282

== ENCOUNTER 2020-04-23 18:49 | Emergency (ER) | payer OTHER ==
[~2020-04-23] VITALS: Ht 170.2 cm; Wt 68.0 kg
[~2020-04-23 18:49] MED LIST changes: +CEPHALEXIN500 MG ORAL
--- NOTE | 2020-04-23 19:15 | NUR ---
ED Nurse Note: Patient walked into the ED with c/o left wrist pain onset 3 days ago. Patient denies injury/trauma. Skin is intact, no visible swelling/ bleeding noted. Pt was taking naproxen for pain but with no relief. Pt denies fever/chills, nausea/vomiting.
--- NOTE | 2020-04-23 19:16 | NUR ---
ED Nurse Note: ERPA at bedside
[2020-04-23 19:23] VITALS: BP 122/78
--- NOTE | 2020-04-23 19:32 | NUR ---
ED Nurse Note: Xray done
--- NOTE | 2020-04-23 19:36 | Emergency Room Report ---
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 Denies any fall or injury. Reports that the pain starts in thenar area and radiates to her left wrist. Has not taken medication for symptom relief. Reports that deep massaging has not been helping it. Patient is neurovascularly intact. Denies chest pain, shortness of breath, headache and dizziness. Denies . Patient has full strength in upper extremities. Allergies: Coded Allergies: No Known Allergies (Unverified , 04/23/20) COVID-19 Screening Contact w/high risk pt: No Recent Travel to affected area: No Experienced COVID-19 symptoms?: No COVID-19 Testing performed BEVERAGE INSPECTION MACHINE TENDER: No Patient History Past Medical History: see triage record Past Surgical History: none Pertinent Family History: none Last Menstrual Period: Now: No Immunizations: UTD Reviewed Nursing Documentation: PMH: Agreed; PSxH: Agreed Nursing Documentation-PMH Past Medical History: No History, Except For Hx Cardiac Problems: No Hx Neurological Problems: No Review of Systems All Other Systems: negative except mentioned in HPI Physical Exam Vital Signs Date Time Temp Pulse Resp B/P (MAP) Pulse Ox O2 Delivery O2 Flow Rate FiO2 04/23/20 18:54 98.1 76 20 122/78 (93) 98 Room Air Sp02 EP Interpretation: reviewed, normal General Appearance: no apparent distress, alert, GCS 15, non-toxic Head: normocephalic, atraumatic Eyes: bilateral eye normal inspection, bilateral eye PERRL ENT: hearing grossly normal, normal pharynx, no angioedema, normal voice Neck: full range of motion, supple/symm/no masses Respiratory: chest non-tender, lungs clear, normal breath sounds, speaking full sentences Cardiovascular #1: regular rate, rhythm, no edema Cardiovascular #2: 2+ carotid (R), 2+ carotid (L), 2+ radial (R), 2+ radial (L), 2+ dorsalis pedis (R), 2+ dorsalis pedis (L) Gastrointestinal: normal bowel sounds, non tender, soft, non-distended, no guarding, no rebound Musculoskeletal: back normal, other - Phalen's sign positive Neurologic: alert, motor strength/tone normal, oriented x3, sensory intact, responsive, speech normal Psychiatric: judgement/insight normal, memory normal, mood/affect normal, no suicidal/homicidal ideation Skin: no rash Lymphatic: no adenopathy Procedures Splinting Splinting : Consent: Verbal Location: Left wrist Pre-Made Type: velcro Splint: wrist Patient Tolerated: Well Complications: None Medical Decision Making PA Attestation All my diagnosis and treatment plans were reviewed ad discussed with my supervising physician Dr. 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 Denies any fall or injury. Reports that the pain starts in thenar area and radiates to her left wrist. Has not taken medication for symptom relief. Reports that deep massaging has not been helping it. Patient is neurovascularly intact. Denies chest pain, shortness of breath, headache and dizziness. Denies . Patient has full strength in upper extremities. Ddx considered but are not limited to : Wrist sprain, wrist strain, wrist fracture Vital signs: are WNL, pt. is afebrile H&PE are most consistent with:left wrist sprain, carpal tunnel syndrome ORDERS: Wrist x-ray, Voltaren gel, Robaxin, Motrin ED INTERVENTIONS: Velcro wrist splint applied DISCHARGE: At this time pt. is stable for d/c to home. Will provide printed patient care instructions, and any necessary prescriptions. Care plan and follow up instructions have been discussed with the patient prior to discharge. Take medication as directed, follow primary care provider, if worsening symptoms return to the emergency room Other X-Ray Diagnostic Results Other X-Ray Diagnostic Results : X-Ray ordered: Left wrist # of Views/Limited Vs Complete: 3 View Indication: Pain EP Interpretation: Yes PA Xray: Interpretation reviewed, by supervising MD, and agrees with findings. Interpretation: no dislocation, no soft tissue swelling, no fractures Impression: No acute disease Electronically Signed by: Nivia Morillo PA-C Last Vital Signs Date Time Temp Pulse Resp B/P (MAP) Pulse Ox O2 Delivery O2 Flow Rate FiO2 04/23/20 19:23 98.1 86 20 122/78 98 Room Air Disposition: HOME, SELF-CARE Condition: Stable Scripts Ibuprofen* (MOTRIN*) 600 Mg Tablet 600 MG ORAL Q8H PRN for FOR PAIN, #20 TAB 0 Refills Prov: Nivia Rivas 04/23/20 Diclofenac Sodium (VOLTAREN) 100 Gm Gel..gram. 2 GM TP TID, #100 GM Prov: Nivia Rivas 04/23/20 Methocarbamol* (ROBAXIN-500*) 500 Mg Tablet 500 MG ORAL TID PRN for For Pain, #15 TAB 0 Refills Prov: Nivia Rivas 04/23/20 Patient Instructions: Carpal Tunnel Syndrome, [id number], Wrist Sprain Additional Instructions: Take medication as directed, follow-up with your primary care provider, worsening symptom return to emergency room Nivia Rivas Apr 23, 2020 19:36
[2020-04-23] MEDS ORDERED: IBUPROFEN600 M1 ORAL (19:37)
[2020-04-23] MEDS ORDERED: ROBAXIN-500MG ORAL (19:37)
[2020-04-23] MEDS ORDERED: VOLTAREN100 G1 TP (19:37)
--- NOTE | 2020-04-23 19:45 | NUR ---
ED Nurse Note: Splint applied to left wrist
[2020-04-23 20:00] VITALS: BP 122/78
--- NOTE | 2020-04-23 20:00 | NUR ---
ER DISCHARGE NOTE: Patient is cleared to be discharged per ERMD, pt is aox4, on room air, with stable vital signs. pt was given dc and prescription instructions, pt was able to verbalize understanding, pt id band removed. pt is able to ambulate with steady gait. pt took all belongings.
--- NOTE | 2020-04-24 16:22 | Diagnostic Imaging Report ---
Clinical Indication:Pain, status post fall Technique: 3 views of the left wrist Comparison: None Findings: No acute fractures. No dislocations. The joint spaces are preserved Impression: Negative
== END 2020-04-23 20:00 | disposition home or self-care (01) ==
LOC: EMR 19:39
DX: S63.502A Unspecified sprain of left wrist, initial encounter (principal); G56.00 Carpal tunnel syndrome, unspecified upper limb; X58.XXXA Exposure to other specified factors, initial encounter; Y92.9 Unspecified place or not applicable
CPT/HCPCS: 73110; Z7502; 99283

== ENCOUNTER 2020-07-01 11:24 | Emergency (ER) | payer OTHER ==
[~2020-07-01] VITALS: Ht 170.2 cm; Wt 65.8 kg
[~2020-07-01 11:24] MED LIST changes: +IBUPROFEN600 M1 ORAL; +ROBAXIN-500MG ORAL; +VOLTAREN100 G1 TP
--- NOTE | 2020-07-01 12:54 | Diagnostic Imaging Report ---
EXAM: XR Left Foot Complete, 3 or More Views CLINICAL HISTORY: PAIN TECHNIQUE: Frontal, lateral and oblique views of the left foot. COMPARISON: None FINDINGS: Bones/joints: No displaced fracture or dislocation identified. Joint space is maintained. No bony lesion. Soft tissues: Normal. IMPRESSION: No displaced fracture or dislocation identified.
--- NOTE | 2020-07-01 13:10 | Emergency Room Report ---
History of Present Illness General Chief Complaint: Lower Extremity Injury Source: Patient Present Illness HPI Patient presents with 4 to 5 days of left foot pain. It is mainly in her first metatarsal phalangeal joint area. It radiates towards the ankle along the dorsum of the foot. She denies any trauma. She does work standing on her feet. She does not recall any tight fitting shoes. In addition she has intermittent numbness of her little toe of the left foot. She is concerned about this because her parents have a history of neuropathy that developed late in life. The patient denies any diabetes. She denies any family history of gout. There are no fevers or chills. The ankle is not sore. The pain is rated 8/10. It is aching. The patient took a nonsteroidal anti-inflammatory last night with minimal improvement. She denies edema or calf pain. There is no shortness of breath or hemoptysis. Patient reports last menstruation June 12 and normal for her. She does not believe she is . Patient denies exposure to Covid positive contacts. She is a [employer] but has not been working recently. Patient was seen in April for carpal tunnel syndrome. History of ovarian cyst. No sore throat, chest pain, palpitations, nausea, vomiting, diarrhea, dysuria, abdominal pain, shortness of breath, rashes, depression, anxiety, visual changes, dizziness, headache. Allergies: Coded Allergies: No Known Allergies (Unverified , 04/23/20) COVID-19 Screening Contact w/high risk pt: No Recent Travel to affected area: No Experienced COVID-19 symptoms?: No COVID-19 Testing performed [employer]: No Patient History Past Medical History: see triage record, old chart reviewed Social History: Denies: smoking - Former Social History Narrative Works on her feet - [employer]. From home Last Menstrual Period: 06/12/20 Now: No Reviewed Nursing Documentation: PMH: Agreed; PSxH: Agreed Nursing Documentation-PMH Past Medical History: No Stated History Hx Cardiac Problems: No Hx Neurological Problems: No Review of Systems All Other Systems: negative except mentioned in HPI Physical Exam Vital Signs Date Time Temp Pulse Resp B/P (MAP) Pulse Ox O2 Delivery O2 Flow Rate FiO2 07/01/20 11:40 98.8 84 18 113/73 (86) 98 Room Air Sp02 EP Interpretation: reviewed, normal General Appearance: well appearing, no apparent distress, GCS 15 Head: normocephalic Eyes: bilateral eye normal inspection, bilateral eye PERRL, bilateral eye EOMI ENT: other - Wearing mask Neck: normal inspection, full range of motion Respiratory: normal inspection Cardiovascular #1: regular rate, rhythm Gastrointestinal: normal inspection Musculoskeletal: gait/station normal, no calf tenderness, tenderness - First me tatarsal phalangeal joint without warmth. Ankle normal Neurologic: alert, oriented x3, grossly normal - Except for reported numbness left little toe Psychiatric: mood/affect normal Skin: normal color, no rash, warm/dry, other - No erythema of the foot Medical Decision Making Diagnostic Impression: Primary Impression: Foot pain, left Additional Impression: Paresthesia left little toe ER Course Patient presents with left first metatarsal phalangeal joint pain. Differential includes tendinitis, unnoticed trauma, sprain, strain, gout amongst others. In addition she complains about numbness of her little toe. This could be a pressure phenomenon or could be the beginning of peripheral nerve problem. Risk factors for the latter are lacking. Discussed evaluation with x-ray and labs. She states she does not want to have labs performed at this time. In addition the patient is given a dose of Motrin here. Foot x-ray without fractures or deformity. No evidence of bony abnormalities. Sesamoid bones are present but not in the area of tenderness. Discussed findings with patient. Her pain is improved with Motrin. Discussed treatment plan with patient. Discussed the importance of follow-up with her outpatient physician. Patient stable for outpatient observation and treatment. Other X-Ray Diagnostic Results Other X-Ray Diagnostic Results : X-Ray ordered: Left foot # of Views/Limited Vs Complete: 3 View Indication: Other EP Interpretation: Yes Interpretation: no dislocation, no soft tissue swelling, no fractures, other - Sesamoid bones Impression: No acute disease Electronically Signed by: Electronically signed by Henry Kamara MD Last Vital Signs Date Time Temp Pulse Resp B/P (MAP) Pulse Ox O2 Delivery O2 Flow Rate FiO2 07/01/20 13:19 72 18 112/78 100 Room Air 07/01/20 11:40 98.8 Status: improved Disposition: HOME, SELF-CARE Condition: Improved Scripts Ibuprofen* (MOTRIN*) 600 Mg Tablet 600 MG ORAL Q6H PRN for FOR PAIN, #20 TAB 0 Refills Prov: Henry Kamara MD 07/01/20 Referrals: [facility],REFERRING (PCP) Henry Kamara MD Jul 01, 2020 13:10
[2020-07-01] MEDS ORDERED: IBUPROFEN600 M1 ORAL (13:11)
[2020-07-01 13:19] VITALS: BP 112/78
== END 2020-07-01 13:20 | disposition home or self-care (01) ==
LOC: EMR 12:15
DX: M79.672 Pain in left foot (principal); R20.2 Paresthesia of skin
CPT/HCPCS: 73630; Z7502; 99283